=== PATIENT | male | born 1950 ===

== ENCOUNTER 2018-06-19 20:51 | Inpatient (IN) | payer MEDICARE ==
[2018-06-19 20:52] VITALS: BMI 22.6
--- NOTE | 2018-06-19 21:38 | C.PDOC ---
History Of Present Illness 68 year old male presents to the ED complaining of feeling depressed. Reports suicidal ideation and thinks he might overdose on heroin to kill himself. Denies HI or hallucinations. Mentions that he has burning pain with urination x 1 week, denies any radiation to back. Time Seen by Provider: 06/19/18 21:04 Chief Complaint (Nursing): Psychiatric Evaluation History Per: Patient History/Exam Limitations: no limitations Onset/Duration Of Symptoms: Days Current Symptoms Are (Timing): Still Present Suicide/Self Injury Attempted (Context): None Associated Symptoms: Depression, Suicidal Thoughts Past Medical History Reviewed: Historical Data, Nursing Documentation, Vital Signs Vital Signs: Last Vital Signs Temp 98.2 F 06/19/18 20:53 Pulse 78 06/19/18 20:53 Resp 18 06/19/18 20:53 BP 174/78 H 06/19/18 20:53 Pulse Ox 98 06/19/18 20:53 - Medical History PMH: Back Problems, HTN Denies: Chronic Kidney Disease Other Surgeries: hx of surgeries - [facility] Procedures APPLICATION OF SPLINT (08/24/13) CL FX REDUC-METATAR/TAR (08/25/13) CLOSURE SKIN & SUBCUTANEOUS NEC (08/25/13) FASCIOTOMY (08/25/13) INFLUENZA VACCINATION (11/23/12) OPEN REDUC-METAT/TARS FX (08/25/13) OTHER SUPRAPUBIC CYSTOSTOMY (08/25/13) Family History: States: No Known Family Hx - Social History Hx Alcohol Use: Yes Hx Substance Use: No - Immunization History Hx Tetanus Toxoid Vaccination: No Hx Influenza Vaccination: No Hx Pneumococcal Vaccination: No Review Of Systems Except As Marked, All Systems Reviewed And Found Negative. Constitutional: Negative for: Fever Cardiovascular: Negative for: Chest Pain Physical Exam - Physical Exam Additional Physical Exam Comments: Constitutional: No acute distress. Head: Normocephalic. Atraumatic. Eyes: PERRL. ENT: Moist mucous membranes. Neck: Supple. Cardiovascular: Regular rate. Radial pulse 2+ bilaterally. Chest: No tenderness. Respiratory: Clear to auscultation bilaterally. GI: Soft. Nontender. Nondistended. Rectal: Guaiac negative Back: No CVA tenderness. Musculoskeletal: No tenderness or swelling of extremities. Skin: No rash. Neurologic: Alert, no focal deficit. ED Course And Treatment - Laboratory Results Result Diagrams: 06/19/18 21:44 06/19/18 21:44 O2 Sat by Pulse Oximetry: 98 (RA) Pulse Ox Interpretation: Normal Medical Decision Making Medical Decision Making: Plan - Bloodwork - UA Blood transfusion consent obtained and ordered. Annemarie for UTI. Psych consult placed. Dr. Holguin accepts to medical service. Disposition - Disposition Disposition: HOSPITALIZED Disposition Time: 22:37 Condition: FAIR Forms: [facility] ([place]) - Clinical Impression Clinical Impression: Urinary tract infection, Major depression, Symptomatic anemia - Scribe Statement The provider has reviewed the documentation as recorded by the Scribe Day Zayas All medical record entries made by the Scribe were at my direction and personally dictated by me. I have reviewed the chart and agree that the record accurately reflects my personal performance of the history, physical exam, medical decision making, and the department course for this patient. I have also personally directed, reviewed, and agree with the discharge instructions and disposition.
[2018-06-19 21:47] LABS: EOS # 0.1 K/uL (0.0-0.7); LYMPH # 1.1 K/uL (1.0-4.3); MEAN CORPUSCULAR HGB CONC 29.5 g/dL (33.0-37.0); MONO # 0.2 K/uL (0.0-0.8); NRBC % 0.1 % (0.0-2.0)
[2018-06-19 21:52] LABS: BASO % 0.5 % (0.0-2.0); EOS % 3.3 % (0.0-4.0); MEAN CELL VOLUME 62.4 fL (80.0-94.0); MEAN CORPUSCULAR HEMOGLOBIN 18.4 pg (27.0-31.0); MEAN PLATELET VOLUME 8.6 fL (7.2-11.7); MONO % 6.9 % (0.0-10.0); NEUT % 57.3 % (50.0-75.0); RBC 3.52 Mil/uL (4.40-5.90); RED CELL DISTRIBUTION WIDTH 18.5 % (11.5-14.5); WHITE BLOOD COUNT 3.5 K/uL (4.8-10.8)
[2018-06-19 21:53] LABS: URINE BACTERIA MOD (<OCC); URINE BILIRUBIN NEGATIVE (NEGATIVE); URINE BLOOD NEGATIVE (NEGATIVE); URINE CLARITY Hazy (Clear); URINE COLOR Yellow (YELLOW); URINE GLUCOSE (UA) NORMAL (Normal); URINE LEUKOCYTE ESTERASE 3+ Leu/uL (Negative); URINE PROTEIN 1+ mg/dL (NEGATIVE); URINE URIC ACID CRYSTALS OCC /hpf (<OCC); URINE UROBILINOGEN NORMAL mg/dL (0.2-1.0)
[2018-06-19 22:04] LABS: ALB/GLOB RATIO 1.2 (1.0-2.1); ALBUMIN 3.7 g/dL (3.5-5.0); ALT/SGPT 17 U/L (21-72); AST/SGOT 35 U/L (17-59); BARBITURATES, UR NEGATIVE (NEGATIVE); BENZODIAZEPINES, UR NEGATIVE (NEGATIVE); BLOOD UREA NITROGEN 26 mg/dL (9-20); CALCIUM 8.8 mg/dl (8.6-10.4); GFR NON-AFRICAN AMERICAN > 60; PHENCYCLIDINE, UR NEGATIVE (NEGATIVE)
[2018-06-19 22:05] LABS: OPIATES, UR POSITIVE (NEGATIVE)
[2018-06-19 22:11] LABS: HEMOGLOBIN 6.5 g/dL (12.0-18.0)
[2018-06-19] MEDS ORDERED: Folic Acid 1 MG, Thiamine 100 MG, Multivitamin (MVI) 10 ML in Dextrose 5% In Water 1,00... IV SCH (23:00)
[2018-06-20 01:06] LABS: IRON < 10 ug/dL (49-181)
[2018-06-20 01:23] LABS: TOTAL IRON BINDING CAPACITY 392 ug/dL (250-450)
[2018-06-20 01:24] LABS: % IRON SATURATION 2.6 (20-55)
[2018-06-20 02:12] LABS: FOLATE 19.7 ng/mL
[2018-06-20 04:47] LABS: BARBITURATES, UR NEGATIVE (NEGATIVE); BENZODIAZEPINES, UR NEGATIVE (NEGATIVE); PHENCYCLIDINE, UR NEGATIVE (NEGATIVE)
[2018-06-20 06:33] LABS: OPIATES, UR POSITIVE (NEGATIVE)
--- NOTE | 2018-06-20 09:58 | RAD ---
Date of service: 06/19/2018 HISTORY: anemia COMPARISON: No prior. FINDINGS: LUNGS: The lungs are well inflated and clear. PLEURA: No pleural effusions or pneumothorax. CARDIOVASCULAR: The heart is normal in size. There are aortic atherosclerotic calcifications present. OSSEOUS STRUCTURES: Within normal limits for the patient's age. VISUALIZED UPPER ABDOMEN: Normal. OTHER FINDINGS: None. IMPRESSION: No active pulmonary disease.
--- NOTE | 2018-06-20 10:28 | PCM.PSYCH ---
Initial Psychiatric Evaluation - Initial Psychiatric Evaluation Type of Admission: Voluntary Legal Status: Capacity Chief Complaint (in patient's own words): "Withdrawing" History of Present Illness and Precipitating Events: The patient is seen, chart reviewed and case discussed. Consultation is requested for his depressive symptoms and substance use. This is a 68-year-old male, with 3 adult children. He lives with his grand daughter who is 22 years old and he is a retired person. He reports that he had been on Percocets for 4 years but he could not get anymore 5 months ago because he was overusing and he switched to heroin. Currently, he uses 4 bags intranasally every day. And he reports withdrawal symptoms he was given methadone last night, and he will get again this morning. Because of the heroin use, he says, he started to feel depressed 2 weeks ago and recently he felt suicidal. However he contracts for safety and he does not have any plan or urge at this point. He is future oriented. Past psychiatric: No previous treatment including detox, rehab or inpatient psychiatric admissions. No previous suicide attempts. Family psych history: He says he has a large family and there are many people with psychiatric and substance use issues. Medical history: He suffers from back pain from disc and also he was recently diagnosed with severe anemia and admitted here. Current Medications: Active Medications Generic Name Dose Route Start Last Admin Trade Name Freq PRN Reason Stop Dose Admin Chlordiazepoxide 50 mg 06/20/18 08:15 Librium PO Q6 PRN Anxiety Ceftriaxone Sodium 1 gm/ 100 mls @ 100 mls/hr 06/19/18 10:00 Sodium Chloride IVPB DAILY KAREN Protocol Methadone HCl 10 mg 06/20/18 08:00 Methadone PO DAILY KAREN Pantoprazole Sodium 40 mg 06/20/18 10:00 Protonix Inj IVP DAILY KAREN Past Psychiatric History - Past Psychiatric History Pertinent Medical Hx (Current Medical&Sleep Prob, Allergies): Allergies Allergy/AdvReac Type Severity Reaction Status Date / Time No Known Allergies Allergy Verified 06/19/18 20:59 No Known Home Med 06/19/18 Review of Systems - Psychiatric Psychiatric: Abnormal Sleep Pattern, Anhedonia, Anxiety, Depression, Difficulty Concentrating. absent: Hallucinations, Homicidal Ideation, Paranoia, Suicidal Ideation Mental Status Examination - Personal Presentation Personal Presentation: Looks stated age - Affect Affect: Constricted - Motor Activity Motor Activity: Calm - Reliability in Providing Information Reliability in Providing Information: Good - Speech Speech: Organized - Mood Mood: Depressed, Anxious - Formal Thought Process Formal Thought Process: No Impairment - Cognitive Functions Orientation: Person, Place, Situation, Time Sensorium: Alert Attention/Concentration: Attentive Estimate of Intelligence: Average Judgement: Intact, as evidence by: Insight regarding need for hospitalization Memory: Recent intact, as evidence by: Ability to recall events of the day, Remote intact, as evidenced by: Abilit to recall sig. life events - Risk Risk: Withdrawal, Diminished functioning - Strength & Assets Inventory Strength & Assets Inventory: Cooperative - Limitations Limitations: Other DSM 5 DX - DSM 5 DSM 5 Diagnosis: Opioid withdrawal Opioid use d/o - severe Major depressive d/o - single, severe, w/o psychosis - Recommended/Plan of Treatment Treatment Recommendations and Plan of Treatment: Taper withmethadone Gabapentin for augmentation if needed Remeron for depression As needed medications All risks, benefits and alternatives of the meds discussed, and the pt agreed and understood. Supportive therapy and psychoeducation MN for abstinence Refer to rehab or IOP, and self-help groups Teach healthy lifestyle methods, i.e. diet, exercise, meditation Smoking cessation with MN Nicotine patch if needed 34 min
[2018-06-20 10:58] LABS: HEMOGLOBIN 7.9 g/dL (12.0-18.0); MEAN CORPUSCULAR HEMOGLOBIN 19.6 pg (27.0-31.0); MEAN CORPUSCULAR HGB CONC 30.2 g/dL (33.0-37.0); RED CELL DISTRIBUTION WIDTH 20.8 % (11.5-14.5); WHITE BLOOD COUNT 3.8 K/uL (4.8-10.8)
[2018-06-20 11:01] LABS: INR 1.2; PROTHROMBIN TIME 13.4 SECONDS (9.7-12.2)
[2018-06-20 11:16] LABS: ALB/GLOB RATIO 1.2 (1.0-2.1); ALBUMIN 3.4 g/dL (3.5-5.0); ALT/SGPT 22 U/L (21-72); AST/SGOT 26 U/L (17-59); BLOOD UREA NITROGEN 19 mg/dL (9-20); CALCIUM 8.4 mg/dl (8.6-10.4); GFR NON-AFRICAN AMERICAN > 60
[2018-06-20 11:54] LABS: LYMPH # 0.7 K/uL (1.0-4.3); MONO # 0.2 K/uL (0.0-0.8); NEUT # 2.9 K/uL (1.8-7.0)
--- NOTE | 2018-06-21 01:02 | CP.PCM.HP ---
Present on Admission - Present on Admission Any Indicators Present on Admission: No Past Patient History - Infectious Disease Hx of Infectious Diseases: None - Past Medical History & Family History Past Medical History?: Yes - Past Social History Smoking Status: Former Smoker - CARDIAC Hx Cardiac Disorders: Yes Hx Hypertension: Yes - PULMONARY Hx Respiratory Disorders: No Hx Tuberculosis: No - NEUROLOGICAL Hx Neurological Disorder: No HX Cerebrovascular Accident: No Hx Seizures: No - HEENT Hx HEENT Problems: No - RENAL Hx Chronic Kidney Disease: No - ENDOCRINE/METABOLIC Hx Endocrine Disorders: No - HEMATOLOGICAL/ONCOLOGICAL Hx Blood Disorders: No Hx Cancer: No Hx Human Immunodeficiency Virus (HIV): No - INTEGUMENTARY Hx Dermatological Problems: No - MUSCULOSKELETAL/RHEUMATOLOGICAL Hx Musculoskeletal Disorders: Yes Hx Back Pain: Yes Hx Falls: Yes - GASTROINTESTINAL Hx Gastrointestinal Disorders: No - GENITOURINARY/GYNECOLOGICAL Hx Genitourinary Disorders: No Hx Sexually Transmitted Disorders: No - PSYCHIATRIC Hx Psychophysiologic Disorder: No Hx Substance Use: Yes - SURGICAL HISTORY Hx Surgeries: Yes Hx Musculoskeletal Surgery: Yes Other/Comment: PROSTATECTOMY, Right foot surgery, back surgery - ANESTHESIA Hx Anesthesia: Yes Hx Anesthesia Reactions: No Hx Malignant Hyperthermia: No Meds Allergies/Adverse Reactions: Allergies Allergy/AdvReac Type Severity Reaction Status Date / Time No Known Allergies Allergy Verified 06/19/18 20:59 Results - Vital Signs Recent Vital Signs: Last Vital Signs Temp 97.7 F 06/21/18 00:00 Pulse 56 L 06/21/18 00:00 Resp 20 06/21/18 00:00 BP 165/80 H 06/21/18 00:00 Pulse Ox 97 06/21/18 00:00 - Labs Result Diagrams: 06/20/18 10:45 06/20/18 10:45 Labs: Laboratory Results - last 24 hr 06/19/18 06/20/18 06/20/18 23:09 00:44 00:44 WBC RBC Hgb Hct MCV MCH MCHC RDW Plt Count MPV Neut % (Auto) Lymph % (Auto) Crosby % (Auto) Eos % (Auto) Baso % (Auto) Neut # (Auto) Lymph # (Auto) Crosby # (Auto) Eos # (Auto) Baso # (Auto) Retic Count Haptoglobin PT INR APTT Sodium Potassium Chloride Carbon Dioxide Anion Gap BUN Creatinine Est GFR ( Amer) Est GFR (Non-Af Amer) Random Glucose Calcium Iron < 10 L TIBC 392 % Saturation 2.6 L Total Bilirubin AST ALT Alkaline Phosphatase Total Protein Albumin Globulin Albumin/Globulin Ratio Carcinoembryonic Ag Prostate Specific Ag 1.00 Vitamin B12 444 Folate 19.7 TSH 3rd Generation 1.03 Urine Opiates Screen Urine Methadone Screen Ur Barbiturates Screen Ur Phencyclidine Scrn Ur Amphetamines Screen U Benzodiazepines Scrn U Oth Cocaine Metabols U Cannabinoids Screen Blood Type O POSITIVE Antibody Screen Negative Crossmatch See Detail 06/20/18 06/20/18 06/20/18 00:44 00:44 04:28 WBC RBC Hgb Hct MCV MCH MCHC RDW Plt Count MPV Neut % (Auto) Lymph % (Auto) Crosby % (Auto) Eos % (Auto) Baso % (Auto) Neut # (Auto) Lymph # (Auto) Crosby # (Auto) Eos # (Auto) Baso # (Auto) Retic Count 1.5 Haptoglobin 61.3 PT INR APTT Sodium Potassium Chloride Carbon Dioxide Anion Gap BUN Creatinine Est GFR ( Amer) Est GFR (Non-Af Amer) Random Glucose Calcium Iron TIBC % Saturation Total Bilirubin AST ALT Alkaline Phosphatase Total Protein Albumin Globulin Albumin/Globulin Ratio Carcinoembryonic Ag Prostate Specific Ag Vitamin B12 Folate TSH 3rd Generation Urine Opiates Screen Positive H Urine Methadone Screen Negative Ur Barbiturates Screen Negative Ur Phencyclidine Scrn Negative Ur Amphetamines Screen Negative U Benzodiazepines Scrn Negative U Oth Cocaine Metabols Negative U Cannabinoids Screen Negative Blood Type Antibody Screen Crossmatch 06/20/18 06/20/18 06/20/18 10:45 10:45 10:45 WBC 3.8 L RBC 4.00 L Hgb 7.9 L Hct 26.0 L MCV 65.0 L D MCH 19.6 L MCHC 30.2 L RDW 20.8 H Plt Count 94 L MPV 9.0 Neut % (Auto) 77.0 H Lymph % (Auto) 17.0 L Crosby % (Auto) 6.0 Eos % (Auto) 0.0 Baso % (Auto) 0.0 Neut # (Auto) 2.9 Lymph # (Auto) 0.7 L Crosby # (Auto) 0.2 Eos # (Auto) 0.0 Baso # (Auto) 0.0 Retic Count Haptoglobin PT 13.4 H INR 1.2 APTT 42 H Sodium 129 L Potassium 4.2 Chloride 101 Carbon Dioxide 26 Anion Gap 7 L BUN 19 Creatinine 0.6 L Est GFR ( Amer) > 60 Est GFR (Non-Af Amer) > 60 Random Glucose 95 D Calcium 8.4 L Iron TIBC % Saturation Total Bilirubin 1.2 AST 26 ALT 22 Alkaline Phosphatase 82 Total Protein 6.3 Albumin 3.4 L Globulin 2.9 Albumin/Globulin Ratio 1.2 Carcinoembryonic Ag Prostate Specific Ag Vitamin B12 Folate TSH 3rd Generation Urine Opiates Screen Urine Methadone Screen Ur Barbiturates Screen Ur Phencyclidine Scrn Ur Amphetamines Screen U Benzodiazepines Scrn U Oth Cocaine Metabols U Cannabinoids Screen Blood Type Antibody Screen Crossmatch 06/20/18 10:45 WBC RBC Hgb Hct MCV MCH MCHC RDW Plt Count MPV Neut % (Auto) Lymph % (Auto) Crosby % (Auto) Eos % (Auto) Baso % (Auto) Neut # (Auto) Lymph # (Auto) Crosby # (Auto) Eos # (Auto) Baso # (Auto) Retic Count Haptoglobin PT INR APTT Sodium Potassium Chloride Carbon Dioxide Anion Gap BUN Creatinine Est GFR ( Amer) Est GFR (Non-Af Amer) Random Glucose Calcium Iron TIBC % Saturation Total Bilirubin AST ALT Alkaline Phosphatase Total Protein Albumin Globulin Albumin/Globulin Ratio Carcinoembryonic Ag 3.2 H Prostate Specific Ag Vitamin B12 Folate TSH 3rd Generation Urine Opiates Screen Urine Methadone Screen Ur Barbiturates Screen Ur Phencyclidine Scrn Ur Amphetamines Screen U Benzodiazepines Scrn U Oth Cocaine Metabols U Cannabinoids Screen Blood Type Antibody Screen Crossmatch
[2018-06-21] MEDS ORDERED: Phytonadione 10 mg/ml Inj (Adult) SC STA (07:12)
[2018-06-21] MEDS ORDERED: Bisacodyl 5mg EC Tab PO ONE (07:12)
[2018-06-21 08:11] LABS: HEMOGLOBIN 8.8 g/dL (12.0-18.0); MEAN CORPUSCULAR HEMOGLOBIN 20.2 pg (27.0-31.0); MEAN CORPUSCULAR HGB CONC 30.7 g/dL (33.0-37.0); MEAN PLATELET VOLUME 8.7 fL (7.2-11.7); RBC 4.35 Mil/uL (4.40-5.90); RED CELL DISTRIBUTION WIDTH 20.7 % (11.5-14.5)
[2018-06-21 08:20] LABS: ALB/GLOB RATIO 1.2 (1.0-2.1); ALBUMIN 3.5 g/dL (3.5-5.0); ALT/SGPT 22 U/L (21-72); AST/SGOT 28 U/L (17-59); BLOOD UREA NITROGEN 16 mg/dL (9-20); CALCIUM 8.8 mg/dl (8.6-10.4); GFR NON-AFRICAN AMERICAN > 60
--- NOTE | 2018-06-21 09:19 | PN ---
DATE: 06/21/2018 LOCATION: 353, bed B. SUBJECTIVE: This 68-year-old male, seen and examined in rounds early this morning, appeared to be awake, alert, oriented without reported evidence of active bleeding from the GI tract, but nausea with dyspepsia with less oral intake. No chest pain, palpitation or significant shortness of breath. The entire chart is reviewed and the most recent lab results showed hemoglobin of 8.9, hematocrit 26 with low indices highly suggestive of hypochromic microcytic anemia with thrombocytopenia of 94 with mild increase of PT and PTT, low calcium and low albumin with increased CEA to 3.2 but normal PSA. PHYSICAL EXAMINATION: GENERAL: A 68-year-old male, awake, alert, oriented. VITAL SIGNS: Afebrile with pulse of 58, respiratory rate 20 to 22, blood pressure of 160/78. HEENT: Showed pale, dry, mucous membrane. Nonicteric sclerae. LUNGS: Few scattered crepitation. Decreased air entry at bases. HEART: Positive S1 and S2. ABDOMEN: Soft. Bowel sounds are present. No mass or organomegaly. No rebound tenderness or guarding. EXTREMITIES: Without significant clubbing, cyanosis or edema. NEUROLOGIC: No reported new neurological deficits. IMPRESSION: 1. Anemia, to rule out upper versus lower gastrointestinal blood loss. 2. Reported major depression. 3 Urinary tract infection, by recent history. 4. Pancytopenia in addition to his hypochromic microcytic anemia. 5. Known history of hypertension with chronic lower back pain syndrome. SUGGESTIONS: 1. Continue current management. 2. The patient for upper endoscopy at a.m. if stable clinically. 3. Also, the patient may benefit from more blood transfusion to keep hemoglobin around 10 g or so. Further recommendation to follow. Rusty Clark MD
[2018-06-21 09:43] LABS: MEAN CELL VOLUME 65.8 fL (80.0-94.0)
[2018-06-21 09:57] LABS: EOS # 0.2 K/uL (0.0-0.7); LYMPH # 0.4 K/uL (1.0-4.3); MONO # 0.3 K/uL (0.0-0.8); NEUT # 3.1 K/uL (1.8-7.0)
--- NOTE | 2018-06-21 10:38 | PCM.PYCHPN ---
Psychiatric Progress Note - Psychiatric Progress Note Patient seen today, length of contact: 16 min Patient Chief Complaint: "They give my meds late. I don't feel well" Medication Change: Yes (detox changes daily) Medical Record Reviewed: Yes Mental Status Examination - Cognitive Function Orientation: Person, Place, Situation, Time Memory: Impaired Attention: WNL Concentration: Poor Association: WNL Fund of Knowledge: WNL - Mood Mood: Depressed, Anxious - Affect Affect: Constricted - Speech Speech: Appropriate - Formal Thought Process Formal Thought Process: No Impairment - Suicidal Ideation Suicidal Ideation: No - Homicidal Ideation Homicidal Ideation: No Goal/Treatment Plan - Goal/Treatment Plan Need for Continued Stay: Severe functional impairment, Other (medical) Progress Toward Problem(s) and Goals/Treatment Plan: Taper withmethadone Gabapentin for augmentation if needed Remeron for depression As needed medications All risks, benefits and alternatives of the meds discussed, and the pt agreed and understood. Supportive therapy and psychoeducation SD for abstinence Refer to rehab or IOP, and self-help groups Teach healthy lifestyle methods, i.e. diet, exercise, meditation Smoking cessation with SD Nicotine patch if needed
--- NOTE | 2018-06-21 21:01 | HP ---
CHIEF COMPLAINT: Weakness. HISTORY OF PRESENT ILLNESS: This is a 68-year-old male who drinks heavily and who uses heroin from the street and he has been drinking and he had been using heroin a lot until he could not do that anymore and the patient felt suicidal and he overdosed himself with heroin to kill himself. He looks pale, sick, undernourished, and he also has dysuria and frequency. He denies any history of hematuria or pyuria. He denies any history of sneezing, itchy eyes, itchy nose. The patient has also history of anxiety. He feels stressed, lack of concentration. He also feels depressed. He feels like crying. He has the feeling of sadness and he is actually crying. He has tingling under the skin, all over the body, weakness, dizziness. He has loose motion at times. The patient denies any prior history of prostate problems. He denies any history of joint pain. He has tingling, numbness, and burning in the body, burning in the feet. He denies any history of palpitation. He has dizziness, weakness. According to the patient, he has attempted multiple drug rehabs in the past with no . CURRENT MEDICATIONS: Unknown. PAST MEDICAL HISTORY: Drug dependence including alcohol and opiates. He denies any history of heart problems, chest pain. He denies any history of chronic cough or wheezing. SOCIAL HISTORY: He is a smoker. He is alcoholic and he is substance abuser. FAMILY HISTORY: Not obtainable. PHYSICAL EXAMINATION: GENERAL: An elderly male who is in distress with weakness withdrawing from opiates. VITAL SIGNS: Blood pressure 149/71, pulse 57, respiratory rate 20, temperature 97.8. SKIN: Pale, ill looking, poor turgor. HEENT: Atraumatic, normocephalic. Positive pallor. Negative jaundice. Extraocular movements are intact. NECK: Supple. No JVD. No lymph node. No thyromegaly. CHEST WALL: Bilateral symmetrical expansion. No deformity. LUNGS: Bilaterally clear. No rales noted. CARDIOVASCULAR SYSTEM: S1 and S2, regular. No heave. No thrill. ABDOMEN: Soft, nontender. Bowel sounds are positive. RECTAL: Enlarged prostate. EXTREMITIES: No clubbing, cyanosis, or edema. CENTRAL NERVOUS SYSTEM: Awake, alert, oriented x3. Cranial nerves II through XII are normal. Power 5/5 x4. Plantars are downgoing. ASSESSMENT: 1. Drug overdose with opiates and alcohol. 2. Drug withdrawal from alcohol and opiates. 3. Hypertension, which could be due to withdrawal. 4. Bradycardia, which is due to opiates, rule out thyroid disease, rule out heart problem. PLAN: Admit. Detailed orders are written. Seen and examined. Nick Holguin MD
--- NOTE | 2018-06-22 | CP.PCM.PN ---
Subjective - Date & Time of Evaluation Date of Evaluation: 06/21/18 Time of Evaluation: 08:20 - Subjective Subjective: dcit Objective - Vital Signs/Intake and Output Vital Signs (last 24 hours): Temp Pulse Resp BP Pulse Ox 97.6 F 54 L 20 156/73 H 100 06/21/18 15:30 06/21/18 15:30 06/21/18 15:30 06/21/18 15:30 06/21/18 15:30 Intake and Output: 06/21/18 06/22/18 18:59 06:59 Intake Total 500 Output Total 400 Balance 100 - Medications Medications: Current Medications Chlordiazepoxide (Librium) 25 mg PO Q6 PRN PRN Reason: CIWA>10 Gabapentin (Neurontin) 300 mg PO TID KAREN Last Admin: 06/21/18 17:43 Dose: 300 mg Hydroxyzine HCl (Atarax) 25 mg PO Q6H PRN PRN Reason: Anxiety Last Admin: 06/21/18 06:54 Dose: 25 mg Ceftriaxone Sodium 1 gm/ (Sodium Chloride) 100 mls @ 100 mls/hr IVPB DAILY KAREN; Protocol Last Admin: 06/21/18 09:16 Dose: 100 mls/hr Lorazepam (Ativan) 0.5 mg PO Q6H PRN PRN Reason: Anxiety Last Admin: 06/21/18 11:24 Dose: 0.5 mg Methadone HCl (Methadone) 10 mg PO Q24H KAREN; Taper Stop: 06/23/18 10:44 Last Admin: 06/21/18 10:39 Dose: 10 mg Mirtazapine (Remeron) 15 mg PO HS KAREN Last Admin: 06/21/18 21:58 Dose: 15 mg Pantoprazole Sodium (Protonix Inj) 40 mg IVP DAILY KAREN Last Admin: 06/21/18 09:17 Dose: 40 mg Tramadol HCl (Ultram) 50 mg PO TID PRN PRN Reason: Pain, moderate (4-7) Last Admin: 06/21/18 07:58 Dose: 50 mg Trazodone HCl (Desyrel) 50 mg PO HS PRN PRN Reason: Insomnia - Labs Labs: 06/21/18 07:50 06/21/18 07:50 PT 13.4 SECONDS (9.7-12.2) H 06/20/18 10:45 INR 1.2 06/20/18 10:45 APTT 42 SECONDS (21-34) H 06/20/18 10:45
--- NOTE | 2018-06-22 04:03 | PN ---
DATE: 06/21/2018 SUBJECTIVE: The patient is afebrile. He is more alert. He is still having withdrawal. He has been seen by Psychiatry. No nausea, vomiting. No chest pain. PHYSICAL EXAMINATION: VITAL SIGNS: Blood pressure 156/73, pulse 54, respiratory rate 20, temperature 97.6. LUNGS: Clear. No rales. No rhonchi. CARDIOVASCULAR: S1, S2 plus S4 positive. ABDOMEN: Soft, nontender. Bowel sounds are positive. ASSESSMENT: 1. Alcohol and opiate intoxication and withdrawal. 2. Hypertension. 3. Anxiety and depression. 4. Sinus bradycardia from opiates. PLAN: Continue to monitor the patient. The patient is on tramadol and the patient will need alcohol detox. Nick Holguin MD
--- NOTE | 2018-06-22 06:33 | CON ---
DATE: 06/20/2018 SHORT CONSULTATION SHEET LOCATION: 352, bed B. That is from Dr. Clark to Dr. Holguin. I was called for a GI consultation by the admitting MD. The entire chart is reviewed after the patient is fully examined. All the available lab and radiology study results, current and the previous medication lists, current and the previous medical events, allergy to medication list were reviewed. Case discussed with the staff at length. HISTORY OF PRESENT ILLNESS: This is a 68-year-old male who was admitted to the hospital through the emergency room, reported feeling of depression, suicidal ideas with complaints also of polyuria and dysuria with poor oral intake, generalized weakness and malaise. PAST MEDICAL HISTORY: Including but not limited to, 1. Hypertension. 2. Chronic lower back pain syndrome. 3. On record, the patient never had any endoscopic evaluation of the GI tract. FAMILY HISTORY: Unknown. SOCIAL HISTORY: Positive for alcoholism and cigarette smoking before. ALLERGIES TO MEDICATIONS: UNKNOWN. CURRENT MEDICATIONS: Post-admission medication lists were reviewed. The patient denied any clear evidence of active GI bleeding at the time he was in the emergency room, at this point it was difficult to obtain an accurate history regarding GI symptoms about mild nausea, dyspepsia, and crampy abdominal pain. Lab results at the time of the admission showed hemoglobin 6.5, hematocrit 21.9 with low indices highly suggestive of hypochromic microcytic anemia. However, the patient also had thrombocytopenia of 107 with low white blood cells of 3.5 indicative of pancytopenia. BUN 26, creatinine 0.8, glucose 121 with low iron. Normal liver function tests as well as normal B12 and folate numbers. PSA was 1, normal. Urine for opiates screen was positive x2. The patient had bacteria as well as hyaline cast in the urine with increased white blood cells and red blood cells. PHYSICAL EXAMINATION: GENERAL: A 68-year-old male. VITAL SIGNS: Afebrile with pulse of 64, respiratory rate 20 to 22, blood pressure of 152/76. HEENT: Showed pale, dry oral mucous membranes, nonicteric sclerae. LUNGS: Few scattered crepitation. Decreased air entry at bases. HEART: Positive S1 and S2. ABDOMEN: Soft with mild generalized tenderness. No mass or organomegaly. No rebound tenderness or guarding. EXTREMITIES: Without significant clubbing, cyanosis or edema. RECTAL: The patient refused. NEUROLOGIC: No reported new neurological deficits, sensory or motor. IMPRESSION: 1. Symptomatic anemia with evidence of pancytopenia that could be, however, secondary to alcohol induced more by depression. 2. Rule out upper versus lower gastrointestinal blood loss. 3. Rule out occult gastrointestinal malignancy. 4. Past medical history including mainly hypertension, poorly controlled; chronic lower back pain syndrome; and depression. 5. Mild dehydration. SUGGESTIONS: 1. Agree with your plan. 2. Due to the patient's iron deficiency anemia, endoscopic evaluation of the GI tract to be performed when the patient is more stable clinically. 3. Guaiac all the stools daily x3. 4. Cancer markers. 5. Proton pump inhibitors IV. 6. Psychiatric evaluation. 7. Further recommendation to follow. 8. Sectional abdominal and pelvic CT scan to be considered post-blood transfusion. We will follow up closely with you. Thank you for letting me to participate in your patient's case management. Rusty Clark MD
--- NOTE | 2018-06-22 07:15 | CON ---
DATE: 06/20/2018 I was called for GI consultation by the admitting medical team. The patient is seen and fully examined on 06/20/2018. The entire chart is reviewed including but not limited to the most recent lab and radiology study results, current and the previous medication lists, current and the previous medical events. Case was discussed with the staff at length at the time of my GI consultation. HISTORY OF PRESENT ILLNESS: This is a 68-year-old male who was admitted to the hospital through the emergency room with feeling of severe depression, was suicidal of note, had been using heroin recently, no reported active GI bleeding, but dysuria and polyuria recently. No reported chest pain, palpitation, or significant shortness of breath. PAST MEDICAL HISTORY: Including but not limited to; 1. Hypertension. 2. Chronic lower back pain syndrome. 3. Status post vasectomy. FAMILY HISTORY: Unknown. SOCIAL HISTORY: Positive for alcohol intake and mentioned heroin use before. CURRENT MEDICATIONS: Post-admission medication list was reviewed. ALLERGIES TO MEDICATION: UNCLEAR. After being admitted to the hospital, the patient was found to have low hemoglobin of 6.5, hematocrit 21.9 with . DICTATION ENDS ABRUPTLY Rusty Clark MD
[2018-06-22] MEDS ORDERED: Lactated Ringer's 500 ML IV ONE ×2 (11:00)
[2018-06-22] MEDS ORDERED: Propofol 10 mg/ml Inj (20 ML) ONE (13:02)
[2018-06-22] MEDS ORDERED: Midazolam 2 MG/2 ML VIAL ONE (13:02)
[2018-06-22] MEDS ORDERED: Peg-Electrolyte Oral Soln 4L (Golytely) PO ONE (14:30)
[2018-06-22] MEDS ORDERED: Bisacodyl 5mg EC Tab PO ONE (17:00)
[2018-06-22] MEDS ORDERED: Magnesium Citrate Oral SOL (300 ml) PO ONE ×2 (18:04→20:00)
--- NOTE | 2018-06-22 22:32 | CP.PCM.PN ---
Subjective - Date & Time of Evaluation Date of Evaluation: 06/22/18 Time of Evaluation: 07:40 - Subjective Subjective: dict Objective - Vital Signs/Intake and Output Vital Signs (last 24 hours): Temp Pulse Resp BP Pulse Ox 97.5 F L 70 20 147/79 99 06/22/18 16:00 06/22/18 16:00 06/22/18 16:00 06/22/18 16:00 06/22/18 16:00 Intake and Output: 06/22/18 06/23/18 18:59 06:59 Intake Total 50 1100 Output Total 750 Balance 50 350 - Medications Medications: Current Medications Bisacodyl (Dulcolax) 10 mg PO ONCE ONE Stop: 06/23/18 06:01 Chlordiazepoxide (Librium) 25 mg PO Q6 PRN PRN Reason: CIWA>10 Gabapentin (Neurontin) 300 mg PO TID KAREN Last Admin: 06/22/18 17:25 Dose: 300 mg Hydroxyzine HCl (Atarax) 25 mg PO Q6H PRN PRN Reason: Anxiety Last Admin: 06/21/18 06:54 Dose: 25 mg Ceftriaxone Sodium 1 gm/ (Sodium Chloride) 100 mls @ 100 mls/hr IVPB DAILY [facility]AREN; Protocol Last Admin: 06/22/18 16:17 Dose: 100 mls/hr Lorazepam (Ativan) 0.5 mg PO Q6H PRN PRN Reason: Anxiety Last Admin: 06/22/18 08:34 Dose: 0.5 mg Metoclopramide HCl (Reglan) 5 mg IVP Q6H [facility]AREN Stop: 06/24/18 23:59 Last Admin: 06/22/18 18:29 Dose: 5 mg Mirtazapine (Remeron) 15 mg PO HS [facility]AREN Last Admin: 06/22/18 21:28 Dose: 15 mg Pantoprazole Sodium (Protonix Inj) 40 mg IVP DAILY [facility] Last Admin: 06/22/18 10:21 Dose: Not Given Tramadol HCl (Ultram) 50 mg PO TID PRN PRN Reason: Pain, moderate (4-7) Last Admin: 06/22/18 07:54 Dose: 50 mg Trazodone HCl (Desyrel) 50 mg PO HS PRN PRN Reason: Insomnia - Labs Labs: 06/21/18 07:50 06/21/18 07:50 PT 13.4 SECONDS (9.7-12.2) H 06/20/18 10:45 INR 1.2 06/20/18 10:45 APTT 42 SECONDS (21-34) H 06/20/18 10:45
[2018-06-23] MEDS ORDERED: Bisacodyl 5mg EC Tab PO ONE (06:00)
[2018-06-23] MEDS ORDERED: Etomidate 20 mg/10ml Inj IV ONE (10:17)
[2018-06-23] MEDS ORDERED: Propofol 10 mg/ml Inj (20 ML) ONE (10:17)
--- NOTE | 2018-06-23 13:14 | PCM.PYCHPN ---
Psychiatric Progress Note - Psychiatric Progress Note Patient seen today, length of contact: 15 min Patient Chief Complaint: "I am still withdrawing" Problems Identified/Issues Discussed: The pt is seen, chart reviewed, case discussed with staff. Support and psychoeducation given, CBT and HI used briefly Pt is improving slowly and needs more time, still has ongoing symptoms. Even though he completed a short detox, today his COWS was still around 8 and he insinuated he might leave as he couldn't take it anymore No SEs from medications, risks discussed. Additional doses and clonidine will be ordered. Medication Change: Yes (detox changes daily) Medical Record Reviewed: Yes Mental Status Examination - Cognitive Function Orientation: Person, Place, Situation, Time Memory: Impaired Attention: WNL Concentration: Poor Association: WNL Fund of Knowledge: WNL - Mood Mood: Depressed, Anxious - Affect Affect: Constricted - Speech Speech: Appropriate - Formal Thought Process Formal Thought Process: No Impairment - Suicidal Ideation Suicidal Ideation: No - Homicidal Ideation Homicidal Ideation: No Goal/Treatment Plan - Goal/Treatment Plan Need for Continued Stay: Severe functional impairment, Other (medical) Progress Toward Problem(s) and Goals/Treatment Plan: Taper with methadone is extended Clonidine for augmentation x3 days Remeron for depression As needed medications All risks, benefits and alternatives of the meds discussed, and the pt agreed and understood. Supportive therapy and psychoeducation HI for abstinence Refer to rehab or IOP, and self-help groups Teach healthy lifestyle methods, i.e. diet, exercise, meditation Smoking cessation with HI Nicotine patch if needed
[2018-06-23 16:00] VITALS: RESP 20
--- NOTE | 2018-06-23 21:29 | CP.PCM.PN ---
Subjective - Date & Time of Evaluation Date of Evaluation: 06/23/18 Time of Evaluation: 07:20 - Subjective Subjective: dict Objective - Vital Signs/Intake and Output Vital Signs (last 24 hours): Temp Pulse Resp BP Pulse Ox 97.5 F L 62 20 132/75 97 06/23/18 15:59 06/23/18 15:59 06/23/18 15:59 06/23/18 15:59 06/23/18 15:59 Intake and Output: 06/23/18 06/24/18 18:59 06:59 Intake Total 350 Balance 350 - Medications Medications: Current Medications Chlordiazepoxide (Librium) 25 mg PO Q6 PRN PRN Reason: CIWA>10 Last Admin: 06/23/18 12:57 Dose: 25 mg Clonidine HCl (Catapres) 0.1 mg PO TID [facility] Stop: 06/25/18 14:01 Last Admin: 06/23/18 17:29 Dose: 0.1 mg Gabapentin (Neurontin) 300 mg PO TID [facility] Last Admin: 06/23/18 17:29 Dose: 300 mg Hydroxyzine HCl (Atarax) 25 mg PO Q6H PRN PRN Reason: Anxiety Last Admin: 06/23/18 07:41 Dose: 25 mg Ceftriaxone Sodium 1 gm/ (Sodium Chloride) 100 mls @ 100 mls/hr IVPB DAILY [facility]; Protocol Last Admin: 06/23/18 13:00 Dose: 100 mls/hr Lorazepam (Ativan) 0.5 mg PO Q6H PRN PRN Reason: Anxiety Last Admin: 06/23/18 07:41 Dose: 0.5 mg Methadone HCl (Methadone) 5 mg PO DAILY [facility] Stop: 06/25/18 10:01 Metoclopramide HCl (Reglan) 5 mg IVP Q6H [facility] Stop: 06/24/18 23:59 Last Admin: 06/23/18 20:35 Dose: 5 mg Mirtazapine (Remeron) 15 mg PO HS [facility] Last Admin: 06/22/18 21:28 Dose: 15 mg Pantoprazole Sodium (Protonix Inj) 40 mg IVP DAILY [facility] Last Admin: 06/23/18 10:32 Dose: Not Given Tramadol HCl (Ultram) 50 mg PO TID PRN PRN Reason: Pain, moderate (4-7) Last Admin: 06/23/18 05:27 Dose: 50 mg Trazodone HCl (Desyrel) 50 mg PO HS PRN PRN Reason: Insomnia - Labs Labs: 06/21/18 07:50 06/21/18 07:50 PT 13.4 SECONDS (9.7-12.2) H 06/20/18 10:45 INR 1.2 06/20/18 10:45 APTT 42 SECONDS (21-34) H 06/20/18 10:45
--- NOTE | 2018-06-24 01:13 | PN ---
DATE: 06/23/2018 SUBJECTIVE: Jacobo Morelos is doing better. He is withdrawing. He has pain medication. No fever. No chills. PHYSICAL EXAMINATION: VITAL SIGNS: Blood pressure 132/75, pulse 62, respiratory rate 20, temperature 97.5. LUNGS: Clear. CARDIOVASCULAR SYSTEM: S1 and S2, regular. ABDOMEN: Soft. ASSESSMENT: 1. Pancytopenia due to alcoholism, improving. 2. Alcohol and opiate dependence. 3. Hypertension. 4. Anemia, iron deficiency. PLAN: Continue pain medication. Monitor the patient. Nick Holguin MD
[2018-06-24 06:27] LABS: BASO % 0.7 % (0.0-2.0); EOS # 0.2 K/uL (0.0-0.7); EOS % 5.9 % (0.0-4.0); HEMOGLOBIN 9.1 g/dL (12.0-18.0); LYMPH # 1.1 K/uL (1.0-4.3); LYMPH % 30.1 % (20.0-40.0); MEAN CELL VOLUME 64.7 fL (80.0-94.0); MEAN CORPUSCULAR HEMOGLOBIN 19.4 pg (27.0-31.0); MEAN CORPUSCULAR HGB CONC 29.9 g/dL (33.0-37.0); MEAN PLATELET VOLUME 8.9 fL (7.2-11.7); MONO # 0.3 K/uL (0.0-0.8); MONO % 8.6 % (0.0-10.0); NEUT % 54.7 % (50.0-75.0); RBC 4.68 Mil/uL (4.40-5.90); RED CELL DISTRIBUTION WIDTH 21.7 % (11.5-14.5); WHITE BLOOD COUNT 3.7 K/uL (4.8-10.8)
[2018-06-24 06:46] LABS: ALB/GLOB RATIO 1.2 (1.0-2.1); ALBUMIN 3.4 g/dL (3.5-5.0); ALT/SGPT 15 U/L (21-72); AST/SGOT 27 U/L (17-59); BLOOD UREA NITROGEN 20 mg/dL (9-20); CALCIUM 7.8 mg/dl (8.6-10.4); GFR NON-AFRICAN AMERICAN > 60
[2018-06-24] MEDS ORDERED: Barium Sulfate Susp 105% w/v, 58% w/w 1900 ml Bottle PO ONE (10:05)
--- NOTE | 2018-06-24 13:25 | PN ---
DATE: 06/24/2018 LOCATION: 352, bed B SUBJECTIVE: This is a 68-year-old male post upper and lower endoscopy, seen and examined in rounds in his way for potential barium enema due to the finding of colonoscopy with complaint of intermittent periods of mild abdominal pain. The entire chart is reviewed including but not limited to the most recent lab and radiology study results, current and previous medication list, current and previous medical events. Today's lab results showed hemoglobin of 9.1, hematocrit 30.7 with low indices highly suggestive of hypochromic microcytic anemia. However, the patient still has low white blood cells of 3.7, low platelets 117 indicative of pancytopenia with sodium 131, potassium 5.7, calcium 7.8 with albumin 3.4 and total protein 6.2 with increased CEA level. PHYSICAL EXAMINATION: GENERAL: A 68-year-old male. VITAL SIGNS: Afebrile with pulse of 62, respiratory rate 20-22, blood pressure of 130/74. HEENT: Showed pale, dry oral mucous membrane. Nonicteric sclerae. LUNGS: Few scattered crepitation. Decreased air entry at bases. HEART: Positive S1 and S2. ABDOMEN: Soft with mild generalized tenderness. No mass or organomegaly. No rebound tenderness or guarding. EXTREMITIES: Without significant clubbing, cyanosis or edema. No reported new neurological deficits. IMPRESSION: 1. Re-exacerbation of peptic ulcer disease. 2. Diverticulosis with incomplete colonoscopy, for barium enema today. 3. Reported urinary tract infection. 4. Pancytopenia. 5. Known history of chronic lower back pain syndrome and hypertension. SUGGESTIONS: 1. Continue current management. 2. Follow up on cancer markers due to the elevated CEA level as well as results of the barium enema. 3. Further recommendation to follow. Rusty Clark MD
--- NOTE | 2018-06-24 13:43 | RAD ---
Date of service: 06/24/2018 PROCEDURE: Barium enema HISTORY: incomplete colonscopy COMPARISON: Not available TECHNIQUE: A barium enema examination was performed utilizing air contrast technique. FINDINGS: A wide load escort radiograph of the abdomen demonstrates the bowel gas pattern to be unremarkable. No hepatic or splenic enlargement is appreciated. There are no masses or abnormal calcifications identified. Barium was introduced per rectum, under fluoroscopic monitoring. The barium was seen to flow in a retrograde fashion to the cecum without evidence of an obstructing lesion. There was difficulty in passage of the barium beyond the rectosigmoid junction most likely due to transient spasm. Please note that evaluation of the cecum is somewhat technically limited on the basis of this examination. The colon is normal in caliber and mucosal detail. There is no intraluminal mass identified. There is no evidence of abnormal extrinsic mass effect upon the colon. There was no reflux of barium into the terminal ileum during this examination.. IMPRESSION: No evidence of colonic neoplasm. Technically limited evaluation of the cecum.
--- NOTE | 2018-06-24 22:21 | CP.PCM.PN ---
Subjective - Date & Time of Evaluation Date of Evaluation: 06/24/18 Time of Evaluation: 08:55 - Subjective Subjective: dict Objective - Vital Signs/Intake and Output Vital Signs (last 24 hours): Temp Pulse Resp BP Pulse Ox 97.3 F L 59 L 20 110/63 95 06/24/18 16:00 06/24/18 16:00 06/24/18 16:00 06/24/18 16:00 06/24/18 16:00 - Medications Medications: Current Medications Chlordiazepoxide (Librium) 25 mg PO Q6 PRN PRN Reason: CIWA>10 Last Admin: 06/23/18 12:57 Dose: 25 mg Clonidine HCl (Catapres) 0.1 mg PO TID [facility] Stop: 06/25/18 14:01 Last Admin: 06/24/18 17:56 Dose: 0.1 mg Gabapentin (Neurontin) 300 mg PO TID KAREN Last Admin: 06/24/18 17:55 Dose: 300 mg Hydroxyzine HCl (Atarax) 25 mg PO Q6H PRN PRN Reason: Anxiety Last Admin: 06/24/18 07:42 Dose: 25 mg Ceftriaxone Sodium 1 gm/ (Sodium Chloride) 100 mls @ 100 mls/hr IVPB DAILY [facility]AREN; Protocol Last Admin: 06/24/18 14:44 Dose: 100 mls/hr Lorazepam (Ativan) 0.5 mg PO Q6H PRN PRN Reason: Anxiety Last Admin: 06/24/18 07:42 Dose: 0.5 mg Methadone HCl (Methadone) 5 mg PO DAILY [facility] Stop: 06/25/18 10:01 Last Admin: 06/24/18 09:37 Dose: 5 mg Metoclopramide HCl (Reglan) 5 mg IVP Q6H [facility] Stop: 06/24/18 23:59 Last Admin: 06/24/18 20:05 Dose: 5 mg Mirtazapine (Remeron) 15 mg PO HS [facility] Last Admin: 06/24/18 22:13 Dose: 15 mg Pantoprazole Sodium (Protonix Inj) 40 mg IVP DAILY [facility] Last Admin: 06/24/18 09:38 Dose: 40 mg Tramadol HCl (Ultram) 50 mg PO TID PRN PRN Reason: Pain, moderate (4-7) Last Admin: 06/24/18 07:42 Dose: 50 mg Trazodone HCl (Desyrel) 50 mg PO HS PRN PRN Reason: Insomnia - Labs Labs: 06/24/18 06:17 06/24/18 06:17 PT 13.4 SECONDS (9.7-12.2) H 06/20/18 10:45 INR 1.2 06/20/18 10:45 APTT 42 SECONDS (21-34) H 06/20/18 10:45
[2018-06-25 01:07] VITALS: O2SAT 98
--- NOTE | 2018-06-25 07:49 | PN ---
DATE: 06/24/2018 SUBJECTIVE: The patient is feeling better. He is calm. He is quiet. PHYSICAL EXAMINATION: VITAL SIGNS: Blood pressure 121/73, pulse 64, respiratory rate 20, temperature 98.4. LUNGS: Clear. No rales, no rhonchi. CARDIOVASCULAR: S1 and S2 regular. ABDOMEN: Soft. Nontender. Bowel sounds are positive. ASSESSMENT: 1. Opioid addiction and withdrawal plus alcohol addiction and withdrawal. 2. Dehydration. 3. Anemia, due to alcohol. 4. Anxiety and depression. PLAN: Continue current medication. Monitor the patient. Nick Holguin MD
[2018-06-25 08:00] VITALS: TEMP 97.4
[2018-06-25 08:19] LABS: BLOOD UREA NITROGEN 17 mg/dL (9-20); CALCIUM 8.8 mg/dl (8.6-10.4); GFR NON-AFRICAN AMERICAN > 60
[2018-06-25] MEDS ORDERED: Influenza Vaccine 60 mcg/0.5 mL SYR (4YR UP) IM ONE (13:19)
--- NOTE | 2018-06-25 16:39 | PN ---
DATE: 06/25/2018 LOCATION: 352, bed B. SUBJECTIVE: This 68-year-old male seen and examined in rounds without significant clinical changes or reported active bleeding, somewhat tolerating oral intake well. The entire chart is reviewed including but not limited to most recent lab and radiology study results, current and previous medication list, current and previous medical events. Case discussed with the admitting medical team at length and today's lab results showed normal SMA-7. However, the patient still has low hemoglobin and hematocrit with low indices highly suggestive of hypochromic microcytic anemia in addition to low white blood cells and thrombocytopenia indicative of pancytopenia which could be secondary to substance abuse leading to bone marrow depression. The patient had barium enema yesterday, official report is seen showing no evidence of colon CA with limited evaluation of the cecum. PHYSICAL EXAMINATION: GENERAL: A 68-year-old male, awake, alert. VITAL SIGNS: Afebrile with pulse of 66, respiratory rate 20-22, blood pressure 118/68. HEENT: Showed pale, dry oral mucous membrane. Nonicteric sclerae. LUNGS: Few scattered crepitation. Decreased air entry at bases. HEART: Positive S1 and S2. ABDOMEN: Soft with mild generalized tenderness. No mass or organomegaly. No rebound tenderness or guarding. EXTREMITIES: Without significant clubbing, cyanosis or edema. No reported new neurological deficit, sensory or motor. IMPRESSION: 1. Peptic ulcer disease. 2. Diverticulosis. 3. Reported recent history of urinary tract infection. 4. Pancytopenia that could be secondary to above and or drug abuse inducing bone marrow depression. 5. Known history of chronic lower back pain syndrome. 6. Poorly controlled hypertension by history. SUGGESTIONS: 1. Continue current management. 2. High-fiber diet, no citrus, no seed. 3. Antireflux measures. 4. Further recommendation to follow. Rusty Clark MD
[2018-06-25 17:16] VITALS: BP 169/79; PULSE 66
--- NOTE | 2018-06-25 18:04 | CP.PCM.PN ---
Subjective - Date & Time of Evaluation Date of Evaluation: 06/25/18 Time of Evaluation: 18:04 - Subjective Subjective: alert, awake, no acute distress. Objective - Vital Signs/Intake and Output Vital Signs (last 24 hours): Temp Pulse Resp BP Pulse Ox 97.4 F L 66 20 169/79 H 98 06/25/18 07:57 06/25/18 14:00 06/25/18 07:57 06/25/18 14:00 06/25/18 07:57 Intake and Output: 06/25/18 06/25/18 06:59 18:59 Intake Total 550 500 Output Total 800 Balance -250 500 - Labs Labs: 06/24/18 06:17 06/25/18 07:31 PT 13.4 SECONDS (9.7-12.2) H 06/20/18 10:45 INR 1.2 06/20/18 10:45 APTT 42 SECONDS (21-34) H 06/20/18 10:45 Assessment and Plan - Assessment and Plan (Free Text) Assessment: 68 year old male admitted with symptomatic anemia,, major depression, seen and examined. Alert and orientedx3, denies sob or chest pains, hemoglobin today is 9.1. Discussed with DR Holguin, plan to discharge home today. Advised to follow up in the office in 1 week. Advised to follow up with pain management as outpatient.
--- NOTE | 2018-06-25 22:44 | CP.PCM.DIS ---
Provider - Provider Date of Admission: 06/19/18 22:34 Attending physician: Nick Holguin MD Consults: 06/19/18 22:32 Psychiatry Consult Routine Comment: Consulting Provider: Brett Lo Consulting Physician: Brett Lo Reason for Consult: depressed 06/19/18 22:50 Psychiatry Consult Routine Comment: Consulting Provider: Brett Lo Consulting Physician: Brett Lo Reason for Consult: alcohol 06/19/18 22:51 Gastroenterology Consult Routine Comment: Consulting Provider: Rusty Taylor Consulting Physician: Rusty Taylor Reason for Consult: anemia Time Spent in preparation of Discharge (in minutes): 30 Hospital Course - Lab Results Lab Results: Micro Results 06/20/18 04:28 Urine Random Urine Culture - Final No Growth (<1,000 CFU/ML) Most Recent Lab Values WBC 3.7 K/uL (4.8-10.8) L 06/24/18 06:17 RBC 4.68 Mil/uL (4.40-5.90) 06/24/18 06:17 Hgb 9.1 g/dL (12.0-18.0) L 06/24/18 06:17 Hct 30.3 % (35.0-51.0) L 06/24/18 06:17 MCV 64.7 fL (80.0-94.0) L 06/24/18 06:17 MCH 19.4 pg (27.0-31.0) L 06/24/18 06:17 MCHC 29.9 g/dL (33.0-37.0) L 06/24/18 06:17 RDW 21.7 % (11.5-14.5) H 06/24/18 06:17 Plt Count 117 K/uL (130-400) L 06/24/18 06:17 MPV 8.9 fL (7.2-11.7) 06/24/18 06:17 Neut % (Auto) 54.7 % (50.0-75.0) 06/24/18 06:17 Lymph % (Auto) 30.1 % (20.0-40.0) 06/24/18 06:17 [place] % (Auto) 8.6 % (0.0-10.0) 06/24/18 06:17 Eos % (Auto) 5.9 % (0.0-4.0) H 06/24/18 06:17 Baso % (Auto) 0.7 % (0.0-2.0) 06/24/18 06:17 Neut # (Auto) 2.0 K/uL (1.8-7.0) 06/24/18 06:17 Lymph # (Auto) 1.1 K/uL (1.0-4.3) 06/24/18 06:17 [place]aine # (Auto) 0.3 K/uL (0.0-0.8) 06/24/18 06:17 Eos # (Auto) 0.2 K/uL (0.0-0.7) 06/24/18 06:17 Baso # (Auto) 0.0 K/uL (0.0-0.2) 06/24/18 06:17 Differential Comment 06/19/18 21:44 Retic Count 1.5 % (0.5-1.5) 06/20/18 00:44 Haptoglobin 61.3 mg/dL (30.0-200.0) 06/20/18 00:44 PT 13.4 SECONDS (9.7-12.2) H 06/20/18 10:45 INR 1.2 06/20/18 10:45 APTT 42 SECONDS (21-34) H 06/20/18 10:45 Sodium 134 mmol/L (132-148) 06/25/18 07:31 Potassium 5.2 mmol/L (3.6-5.2) 06/25/18 07:31 Chloride 102 mmol/L (98-107) 06/25/18 07:31 Carbon Dioxide 29 mmol/L (22-30) 06/25/18 07:31 Anion Gap 9 (10-20) L 06/25/18 07:31 BUN 17 mg/dL (9-20) 06/25/18 07:31 Creatinine 1.0 mg/dL (0.8-1.5) 06/25/18 07:31 Est GFR ( Amer) > 60 06/25/18 07:31 Est GFR (Non-Af Amer) > 60 06/25/18 07:31 Random Glucose 110 mg/dL (75-110) D 06/25/18 07:31 Calcium 8.8 mg/dl (8.6-10.4) 06/25/18 07:31 Phosphorus 3.5 mg/dL (2.5-4.5) 06/19/18 21:44 Magnesium 1.9 mg/dL (1.6-2.3) 06/19/18 21:44 Iron < 10 ug/dL (49-181) L 06/20/18 00:44 TIBC 392 ug/dL (250-450) 06/20/18 00:44 % Saturation 2.6 (20-55) L 06/20/18 00:44 Total Bilirubin 0.4 mg/dL (0.2-1.3) 06/24/18 06:17 AST 27 U/L (17-59) 06/24/18 06:17 ALT 15 U/L (21-72) L D 06/24/18 06:17 Alkaline Phosphatase 76 U/L (38-126) 06/24/18 06:17 Total Protein 6.2 g/dL (6.3-8.3) L 06/24/18 06:17 Albumin 3.4 g/dL (3.5-5.0) L 06/24/18 06:17 Globulin 2.8 gm/dL (2.2-3.9) 06/24/18 06:17 Albumin/Globulin Ratio 1.2 (1.0-2.1) 06/24/18 06:17 Carcinoembryonic Ag 3.2 ng/mL (0-3.0) H 06/20/18 10:45 Prostate Specific Ag 1.00 ng/mL (0.00-4.0) 06/20/18 00:44 Vitamin B12 444 pg/mL (239-931) 06/20/18 00:44 Folate 19.7 ng/mL 06/20/18 00:44 TSH 3rd Generation 1.03 mIU/L (0.46-4.68) 06/20/18 00:44 Urine Color Yellow (YELLOW) 06/19/18 21:44 Urine Clarity Hazy (Clear) 06/19/18 21:44 Urine pH 5.0 (5.0-8.0) 06/19/18 21:44 Ur Specific [place] 1.014 (1.003-1.030) 06/19/18 21:44 Urine Protein 1+ mg/dL (NEGATIVE) H 06/19/18 21:44 Urine Glucose (UA) Normal mg/dL (Normal) 06/19/18 21:44 Urine Ketones Negative mg/dL (NEGATIVE) 06/19/18 21:44 Urine Blood Negative (NEGATIVE) 06/19/18 21:44 Urine Nitrate Negative (NEGATIVE) 06/19/18 21:44 Urine Bilirubin Negative (NEGATIVE) 06/19/18 21:44 Urine Urobilinogen Normal mg/dL (0.2-1.0) 06/19/18 21:44 Ur Leukocyte Esterase 3+ Tere/uL (Negative) H 06/19/18 21:44 Urine WBC (Auto) 876 /hpf (0-5) H 06/19/18 21:44 Urine RBC (Auto) 10 /hpf (0-3) H 06/19/18 21:44 Uric Acid Crystals Occ /hpf (<OCC) H 06/19/18 21:44 Urine Bacteria Mod (<OCC) H 06/19/18 21:44 Hyaline Casts 6-10 /lpf (0-2) H 06/19/18 21:44 Urine Opiates Screen Positive (NEGATIVE) H 06/20/18 04:28 Urine Methadone Screen Negative (NEGATIVE) 06/20/18 04:28 Ur Barbiturates Screen Negative (NEGATIVE) 06/20/18 04:28 Ur Phencyclidine Scrn Negative (NEGATIVE) 06/20/18 04:28 Ur Amphetamines Screen Negative (NEGATIVE) 06/20/18 04:28 U Benzodiazepines Scrn Negative (NEGATIVE) 06/20/18 04:28 U Oth Cocaine Metabols Negative (NEGATIVE) 06/20/18 04:28 U Cannabinoids Screen Negative (NEGATIVE) 06/20/18 04:28 Alcohol, Quantitative < 10 mg/dl (0-10) 06/19/18 21:44 Blood Type O POSITIVE 06/19/18 23:09 Antibody Screen Negative 06/19/18 23:09 Crossmatch See Detail 06/19/18 23:09 Discharge Plan - Discharge Medications Prescriptions: traZODone [Desyrel] 50 mg PO HS PRN #30 tab PRN Reason: Insomnia Gabapentin [Neurontin] 300 mg PO TID #90 cap Pantoprazole Sodium [Protonix] 40 mg PO DAILY #30 ect Mirtazapine [Remeron] 15 mg PO HS #30 tab traMADol [Ultram] 50 mg PO TID PRN #20 tab PRN Reason: Pain, Moderate (4-7) - Follow Up Plan Condition: FAIR Disposition: HOME/ ROUTINE Instructions: Depression, Anemia of Chronic Disease (DC), Gabapentin, Pantoprazole, Trazodone, Urinary Tract Infection in Men (DC), Dysuria (GEN)
--- NOTE | 2018-06-26 06:29 | DS ---
DISCHARGE DIAGNOSES: 1. Anemia and leukopenia due to alcohol. 2. Alcohol withdrawal syndrome. 3. Opioid dependent. 4. Dehydration. HISTORY OF PRESENT ILLNESS AND HOSPITAL COURSE: This is a 68-year-old male with history of alcoholism, opioid dependence. He uses street drugs. The patient has a history of prior hospitalizations. He came in and was found to have severely low WBC count and hemoglobin. The patient required transfusions. WBC went up on its own. The patient had alcohol. The patient had urine opioid screen positive. The patient was detox with Psychiatry. The patient received iron. The patient received multivitamin and thiamine. The patient did well. The patient has borderline CEA. Given the CEA, it can be falsely highly seen in smokers. The patient needs outpatient colonoscopy. The patient barium enema was negative. PHYSICAL EXAMINATION: VITAL SIGNS: Blood pressure 169/79, pulse 66, respiratory rate 20, temperature 97.4. PLAN: Discharge the patient. Outpatient followup. CONDITION UPON DISCHARGE: Stable. Nick Holguin MD
== END 2018-06-25 16:15 | disposition home or self-care (01) | DRG 809 ==
LOC: C.ER 20:51 → C.9E 22:34 → C.3T 23:19
PROVIDERS: ADMIT Internal Medicine; ATTEND Internal Medicine
PROC: HZ2ZZZZ Detoxification Services for Substance Abuse Treatment (ICD-10-PCS; principal; 2018-06-19)
PROC: HZ52ZZZ Individual Psychotherapy for Substance Abuse Treatment, Cognitive-Behavioral (ICD-10-PCS; 2018-06-19)
PROC: HZ59ZZZ Individual Psychotherapy for Substance Abuse Treatment, Supportive (ICD-10-PCS; 2018-06-19)
PROC: HZ56ZZZ Individual Psychotherapy for Substance Abuse Treatment, Psychoeducation (ICD-10-PCS; 2018-06-19)
PROC: HZ42ZZZ Group Counseling for Substance Abuse Treatment, Cognitive-Behavioral (ICD-10-PCS; 2018-06-19)
PROC: HZ46ZZZ Group Counseling for Substance Abuse Treatment, Psychoeducation (ICD-10-PCS; 2018-06-19)
PROC: GZHZZZZ Group Psychotherapy (ICD-10-PCS; 2018-06-19)
PROC: GZ58ZZZ Individual Psychotherapy, Cognitive-Behavioral (ICD-10-PCS; 2018-06-19)
PROC: GZ56ZZZ Individual Psychotherapy, Supportive (ICD-10-PCS; 2018-06-19)
PROC: 30233N1 Transfusion of Nonautologous Red Blood Cells into Peripheral Vein, Percutaneous Approach (ICD-10-PCS; 2018-06-20)
PROC: 0DB68ZX Excision of Stomach, Via Natural or Artificial Opening Endoscopic, Diagnostic (ICD-10-PCS; 2018-06-22)
PROC: 0DBN8ZX Excision of Sigmoid Colon, Via Natural or Artificial Opening Endoscopic, Diagnostic (ICD-10-PCS; 2018-06-23)
DX: D61.818 Other pancytopenia (principal); N39.0 Urinary tract infection, site not specified; F11.23 Opioid dependence with withdrawal; F19.20 Other psychoactive substance dependence, uncomplicated; F10.230 Alcohol dependence with withdrawal, uncomplicated; F32.2 Major depressive disorder, single episode, severe without psychotic features; E86.0 Dehydration; F41.9 Anxiety disorder, unspecified; I10 Essential (primary) hypertension; Z98.52 Vasectomy status; R20.0 Anesthesia of skin; Y90.9 Presence of alcohol in blood, level not specified; Z87.891 Personal history of nicotine dependence; T40.1X2A Poisoning by heroin, intentional self-harm, initial encounter; M54.5 Low back pain; G89.29 Other chronic pain; K57.30 Diverticulosis of large intestine without perforation or abscess without bleeding; K58.9 Irritable bowel syndrome, unspecified; F10.220 Alcohol dependence with intoxication, uncomplicated; R00.1 Bradycardia, unspecified; K25.9 Gastric ulcer, unspecified as acute or chronic, without hemorrhage or perforation; K20.9 Esophagitis, unspecified; K44.9 Diaphragmatic hernia without obstruction or gangrene; G47.00 Insomnia, unspecified; D75.89 Other specified diseases of blood and blood-forming organs